=== PATIENT | female | born 1980 | race Caucasian/White ===

== ENCOUNTER 2019-12-02 12:00 | Emergency (ER) | payer OTHER ==
[~2019-12-02] VITALS: Ht 157.5 cm; Wt 74.8 kg
[2019-12-02 15:10] VITALS: BP 105/71
== END 2019-12-02 15:13 | disposition home or self-care (01) ==
LOC: M.ERS 12:00
DX: S93.491A Sprain of other ligament of right ankle, initial encounter (principal); Z87.891 Personal history of nicotine dependence; W00.0XXA Fall on same level due to ice and snow, initial encounter; Y93.89 Activity, other specified; Y92.89 Other specified places as the place of occurrence of the external cause; Y99.8 Other external cause status